=== PATIENT | female | born 1980 | race Caucasian/White ===

== ENCOUNTER 2020-02-23 13:18 | Emergency (ER) | payer MEDICARE, MEDICAID ==
[~2020-02-23] VITALS: Ht 147 cm; Wt 65.0 kg
[2020-02-23 13:35] VITALS: BP 120/60
[2020-02-23] MEDS ORDERED: CLIN300C11 PO (13:43)
--- NOTE | 2020-02-23 13:44 | ED EENT ---
History of Present Illness General Chief Complaint: Oral/Throat Problems Stated Complaint: SORE THROAT; COVID POS ON Exam Limitations: clinical condition, physical impairment History of Present Illness Date Seen by Provider: Feb 23, 2020 Time Seen by Provider: 13:35 Initial Comments 39-year-old mentally handicapped female presents with her caregiver stating that she's had swelling under her chin, just noted today and it seems to be tender. she was diagnosed with COVID-19 Allergies and Home Medications Allergies Coded Allergies: No Known Drug Allergies (Unverified , 02/23/20) Home Medications Clindamycin HCl 300 Mg Capsule, 300 MG PO TIDWM Prescribed by: JEOVANNY HANCOCK on 02/23/20 1343 Patient Home Medication List Home Medication List Reviewed: Yes Review of Systems Review of Systems Constitutional: no symptoms reported (unable to perform ROS due to Mental status) Past Gbpxgqh-Afvjat-Ihxtfs Hx Past Med/Social Hx: Reviewed Nursing Past Med/Soc Hx Physical Exam Vital Signs Vital Signs - First Documented 02/23/20 13:35 Temp 37.0 Pulse 116 Resp 20 B/P (MAP) 120/60 (80) Pulse Ox 95 O2 Delivery Room Air Height, Weight, BMI Height: '" Weight: lbs. oz. kg; BMI Method: General Appearance: WD/WN, no apparent distress Eyes: bilateral eye normal inspection, bilateral eye PERRL, bilateral eye EOMI Ears: bilateral ear auricle normal, bilateral ear canal normal Nose: normal inspection; No active bleeding, No discharge, No sinus tenderness Mouth/Throat: other (uncooperative for oral exam, edentulous, no externeal abnl appreciated) Neck: full range of motion, supple; No limited range of motion; other (midline edema submental area w mild tenderness) Cardiovascular: regular rate, rhythm, no edema, no JVD Respiratory: chest non-tender, lungs clear Neurologic/Psychiatric: alert Skin: normal color, warm/dry Progress/Results/Core Measures Results/Orders Vital Signs/I&O 02/23/20 13:35 Temp 37.0 Pulse 116 Resp 20 B/P (MAP) 120/60 (80) Pulse Ox 95 O2 Delivery Room Air Departure Impression Primary Impression: Lymphadenitis, acute Disposition: 01 HOME, SELF-CARE Condition: Stable Departure-Patient Inst. Decision time for Depature: 13:42 Patient Instructions: Lymphadenitis (DC) Add. Discharge Instructions: follow up with your PCP in 1 week for re-evaluation All discharge instructions reviewed with patient and/or family. Voiced understanding. Scripts Clindamycin HCl (Clindamycin HCl) 300 Mg Capsule 300 MG PO TIDWM, #21 CAP Prov: JEOVANNY HANCOCK DO 02/23/20 JEOVANNY HANCOCK DO Feb 23, 2020 13:44
== END 2020-02-23 13:50 | disposition home or self-care (01) ==
LOC: EDUNIT# 13:18 → ER FS 13:23
DX: L04.0 Acute lymphadenitis of face, head and neck (principal)
CPT/HCPCS: 99282

== ENCOUNTER 2021-07-23 13:38 | Day surgery (SDC) | payer MEDICARE, MEDICAID ==
[~2021-07-23 13:38] MED LIST: CLIN-144 PO
--- NOTE | 2021-07-23 14:01 | ED Cough/URI ---
General Chief Complaint: Cough/Cold/Flu Symptoms Stated Complaint: CHOKING Nursing Triage Note: Patient has been brought to ER by the [facility] staff with cc of choking at lunch. Since lunch pat has had couging fits and she has coughed out what they believe might be some string cheese that she had for lunch. They are concerned that she still has food stuck and came to ER for evaluation. Source: patient Exam Limitations: no limitations (OH PIRES MD) History of Present Illness Date Seen by Provider: Jul 23, 2021 Time Seen by Provider: 13:47 Initial Comments 40yoF with PMH of Alcohol Syndrome that is essentially nonverbal and developmentally delayed coming in due to concerns for choking. Around 11:30 AM she was eating and had some cheese. She began coughing some up and at one point was not making any noise and they were concerned her face turned blue. They performed the Heimlich for a couple attempts and she got a little bit up and started breathing, but continued to cough. They called 911 and were assessed by a field sales executive. Vitals were normal at that time and she did not appear to be choking so they left the scene without transporting the patient. She has continued to have coughing episodes where she is bringing up some food so they presented to the ER. Further elements of the history and physical are unable to be obtained from the patient given she is nonverbal. (OH PIRES MD) Allergies and Home Medications Allergies Coded Allergies: No Known Drug Allergies (Unverified , 02/23/20) Patient Home Medication List Home Medication List Reviewed: Yes (OH PIRES MD) Clindamycin HCl (Clindamycin HCl) 300 Mg Capsule, 300 MG PO TIDWM Prescribed by: JEOVANNY HANCOCK on 02/23/20 1343 Review of Systems Review of Systems Constitutional: No fever EENTM: no symptoms reported Respiratory: no symptoms reported Cardiovascular: no symptoms reported Gastrointestinal: no symptoms reported Genitourinary: no symptoms reported Musculoskeletal: no symptoms reported Skin: no symptoms reported Psychiatric/Neurological: No Symptoms Reported Hematologic/Lymphatic: No Symptoms Reported Immunological/Allergic: no symptoms reported (OH PIRES MD) All Other Systems Reviewed Negative Unless Noted: Yes (OH PIRES MD) Past Mbvzgsx-Zlcsft-Xqodmx Hx Patient Social History Tobacco Use?: No Use of E-Cig and/or Vaping dev: No Substance use?: No Alcohol Use?: No (OH PIRES MD) Seasonal Allergies Seasonal Allergies: No (OH PIRES MD) Past Medical History Surgeries: No Respiratory: No Cardiac: No Neurological: Yes (intellectual disabilities) Genitourinary: No Gastrointestinal: No Musculoskeletal: No Endocrine: No HEENT: No Cancer: No Psychosocial: No Integumentary: No (OH PIRES MD) Physical Exam Vital Signs - First Documented 07/23/21 13:51 Temp 36.2 Pulse 86 Resp 18 B/P (MAP) 120/67 (84) Pulse Ox 100 O2 Delivery Room Air (LINK BLANCAS APRN) Capillary Refill : (OH PIRES MD) Height: '" Weight: lbs. oz. kg; 30.00 BMI Method: General Appearance: WD/WN, no apparent distress Eyes: Bilateral Eye Normal Inspection HEENT: PERRL/EOMI, normal ENT inspection, pharynx normal, other (clear mouth without food in it) Neck: non-tender, full range of motion, supple, normal inspection Respiratory: chest non-tender, lungs clear, normal breath sounds, no respiratory distress, no accessory muscle use Cardiovascular: regular rate, rhythm, no edema, no murmur Gastrointestinal: normal bowel sounds, non tender, soft; No distended, No guarding, No rebound Extremities: normal range of motion, non-tender, normal inspection, no pedal edema, no calf tenderness, normal capillary refill Neurologic/Psychiatric: no motor/sensory deficits, alert, normal mood/affect Skin: normal color, warm/dry Lymphatic: no adenopathy (OH PIRES MD) Progress/Results/Core Measures Suspected Sepsis SIRS Temperature: Pulse: 86 Respiratory Rate: 18 Blood Pressure 120 /67 Mean: 84 (OH PIRES MD) Results/Orders My Orders Orders - LINK BLANCAS APRN Chest 1 View, Ap/Pa Only (07/23/21 16:00) Ed Iv/Invasive Line Start (07/23/21 16:00) (LINK BLANCAS APRN) Vital Signs/I&O 07/23/21 07/23/21 07/23/2122 13:51 14:22 15:14 15:42 Temp 36.2 36.6 Pulse 86 84 84 86 Resp 18 18 16 20 B/P (MAP) 120/67 (84) 130/75 120/67 (84) 132/88 Pulse Ox 100 100 100 O2 Delivery Room Air Nasal Cannula O2 Flow Rate 2.00 07/23/21 15:42 Temp 36.6 Pulse 86 Resp 20 B/P (MAP) 132/88 (103) Pulse Ox 100 O2 Delivery Nasal Cannula O2 Flow Rate 2.00 (LINK BLANCAS APRN) Vital Signs/I&O Capillary Refill : (OH PIRES MD) Blood Pressure Mean: 84 Progress Note : Progress Note 40-year-old female coming in after an aspiration event. ABCs were intact and vitals were stable on presentation. Physical exam with clear lung sounds bilaterally. The patient is actively coughing and she is spitting all of her secretions into a towel at the bedside. Is difficult to assess what she is feeling given she is nonverbal. We attempted to get her to drink water, but she immediately spit it out. I am concerned there could be a food bolus impaction in her esophagus versus discomfort from food in her airway. Chest x-ray with some elevation of the left hemidiaphragm but otherwise no acute findings. I discussed with the patient's caregivers if we could try to do a CT to get more information. The patient is unwilling to lay down flat for this, and is unwilling to hold still for the procedure to get good pictures. I think the risk of sedating her for CT outweigh the benefits. I called and discussed the case with Dr. Silverio, and he is agreeable to doing an EGD as well as any other indicated procedure after he assesses her. I contacted the patient's mother (Aminata Buchanan at [phone]) who is her legal guardian and consented for this procedure with 2 people listening onto the phone conversation. The patient will be transferred from ER to ER to [place]. I discussed the case with Dr. Arias who is agreeable to excepting this patient. (OH PIRES MD) Diagnostic Imaging Diagonstic Imaging: Xray (chest) Comments [facility] [place], [place] NAME: SUSANA BUCHANAN [facility] REC#: [id number] PT STATUS: REG ER : 1980 PHYSICIAN: OH PIRES MD ADMIT DATE: 07/23/21/ER FS Draft Date of Exam:07/23/21 CHEST 1 VIEW AP/PA ONLY INDICATION: Aspiration. COMPARISON: None. FINDINGS: Single frontal radiographic view of the chest was obtained and demonstrates moderate asymmetric elevation of the left hemidiaphragm. There is asymmetric left basilar patchy atelectasis. Otherwise, lungs are clear. There is no large effusion nor pneumothorax. Cardiac silhouette and pulmonary vasculature are within normal limits. Osseous structures show dextroscoliotic deformity of the lower thoracic spine. No gross acute osseous abnormalities are seen. IMPRESSION: 1. Asymmetric elevation of the left hemidiaphragm with left basilar patchy atelectasis. 2. Otherwise, no acute cardiopulmonary process. Dictated on workstation # [id number] Dict: 07/23/21 1409 Trans: 07/23/21 1417 [id number] Interpreted by: VINAY GONZALES MD Electronically signed by: (OH PIRES MD) Departure Communication (Admissions) 1545 has arrived to ER by [facility]. They report that her oxygen was fine until they reached about [place]. At that point she started having some excessive oral secretions and had difficulty clearing them. When she would clear her throat and cough she would get a large amount of secretion up and her oxygen saturation would improve. On arrival here we did some deeper suctioning though she was not appreciative of this. We did aspirate a lot of saliva from the oropharynx. Sats are fine. (LINK BLANCAS APRN) Impression Primary Impression: Aspiration of food Qualified Codes: T17.928A - Food in respiratory tract, part unspecified causing other injury, initial encounter Disposition: ADMITTED INPATIENT Condition: Stable Transfer Time Spoke to Accepting Phy: 14:35 Transfer Progress Notes Discussed the case with the general surgeon in [place] as well as the emergency department physician. The patient will be an ER to ER transfer, will then be taken to the endoscopy lab and likely discharged from there. Transfer Time: 14:45 Transfer Facility: [facility] Method of Transfer: EMS (OH PIRES MD) Departure-Patient Inst. Referrals: FBAY MILLER APRN (PCP) Primary Care Physician [facility]/ (Family) Primary Care Physician OH PIRES MD Jul 23, 2021 14:01 LINK BLANCAS APRN Jul 23, 2021 15:46
--- NOTE | 2021-07-23 14:17 | Diagnostic Imaging Report ---
INDICATION: Aspiration. COMPARISON: None. FINDINGS: Single frontal radiographic view of the chest was obtained and demonstrates moderate asymmetric elevation of the left hemidiaphragm. There is asymmetric left basilar patchy atelectasis. Otherwise, lungs are clear. There is no large effusion nor pneumothorax. Cardiac silhouette and pulmonary vasculature are within normal limits. Osseous structures show dextroscoliotic deformity of the lower thoracic spine. No gross acute osseous abnormalities are seen. IMPRESSION: 1. Asymmetric elevation of the left hemidiaphragm with left basilar patchy atelectasis. 2. Otherwise, no acute cardiopulmonary process. Dictated by: Dictated on workstation # [id number]
--- NOTE | 2021-07-23 16:21 | History & Physical-Surgical ---
THALIA JO Mariaelena 07/23/21 1621: History of Present Illness History of Present Illness Reason for visit/HPI CC: Choking HPI: is a 40 year old female with a past medical history of alcohol syndrome who is nonverbal. She presented to the [facility] ED via a transfer from [place]. History obtained from chart review and ED staff. When she was being transferred from [place] to [place] she developed an episode of hypoxia with saturations in the 80s. Suctioning was performed and around 50 mL of saliva with sanguineous material was removed. Remainder of HPI as follows from chart review: 40yoF with PMH of Alcohol Syndrome that is essentially nonverbal and developmentally delayed coming in due to concerns for choking. Around 11:30 AM she was eating and had some cheese. She began coughing some up and at one point was not making any noise and they were concerned her face turned blue. They performed the Heimlich for a couple attempts and she got a little bit up and started breathing, but continued to cough. They called 911 and were assessed by a bureau director. Vitals were normal at that time and she did not appear to be choking so they left the scene without transporting the patient. She has continued to have coughing episodes where she is bringing up some food so they presented to the ER. Date of Admission 07/23/2021 Date Seen by a Provider: Jul 23, 2021 Time Seen by a Provider: 16:02 I consulted on this patient on 07/23/21 16:15 Attending Physician Joey Fernandez DO Admitting Physician Antonia Mejia Aprn Consult Allergies and Home Medications Allergies Coded Allergies: No Known Drug Allergies (Unverified , 02/23/20) Patient Home Medication List Clindamycin HCl (Clindamycin HCl) 300 Mg Capsule, 300 MG PO TIDWM Prescribed by: JEOVANNY HANCOCK on 02/23/20 1343 Past Apinaoi-Btyprp-Wdghcy Hx Patient Social History Tobacco Use?: No Use of E-Cig and/or Vaping dev: No Substance use?: No Alcohol Use?: No Seasonal Allergies Seasonal Allergies: No Current Status Primary Language: Armenian Preferred Spoken Language: Armenian Past Medical History Developmental Disorder ( alcohol syndrome) Review of Systems ROS-Unable to Obtain: Unable to obtain d/t patient nonverbal status Physical Exam Vital Signs Vital Signs - First Documented 07/23/21 13:51 Temp 36.2 Pulse 86 Resp 18 B/P (MAP) 120/67 (84) Pulse Ox 100 O2 Delivery Room Air Capillary Refill : Less Than 3 Seconds Height, Weight, BMI Height: '" Weight: lbs. oz. kg; 30.00 BMI Method: General Appearance: No Apparent Distress, WD/WN HEENT: PERRL/EOMI, Moist Mucous Membranes Neck: Normal Inspection, Supple Respiratory: No Accessory Muscle Use, No Respiratory Distress, Decreased Breath Sounds, Wheezing Cardiovascular: Regular Rate, Rhythm, Normal Peripheral Pulses Gastrointestinal: Non Tender, Soft Neurologic/Psychiatric: Alert; No Oriented x3 (Patient nonverbal) Skin: Normal Color, Warm/Dry Data Review Radiology Date of Exam:07/23/21 CHEST 1 VIEW AP/PA ONLY INDICATION: Aspiration. COMPARISON: None. FINDINGS: Single frontal radiographic view of the chest was obtained and demonstrates moderate asymmetric elevation of the left hemidiaphragm. There is asymmetric left basilar patchy atelectasis. Otherwise, lungs are clear. There is no large effusion nor pneumothorax. Cardiac silhouette and pulmonary vasculature are within normal limits. Osseous structures show dextroscoliotic deformity of the lower thoracic spine. No gross acute osseous abnormalities are seen. IMPRESSION: 1. Asymmetric elevation of the left hemidiaphragm with left basilar patchy atelectasis. 2. Otherwise, no acute cardiopulmonary process. Dictated on workstation # [id number] Assessment/Plan Assessment/Plan Admission Diagonsis Possible food bolus Choking alcohol syndrome Nonverbal Assessment/Plan Assessment: Possible food bolus Choking alcohol syndrome Nonverbal Plan: Suction mouth and oropharynx as needed Consent for EGD obtained Plan for EGD JOEY FERNANDEZ DO 07/23/21 1634: History of Present Illness History of Present Illness Reason for visit/HPI CC: aspiration of food 40 year old female with alcohol syndrom nonverbal lives in home. Had choking and truned blue. Had Heimlich maneuver performed and had some food expressed. Started breathing better. Conitnued to cough and bring up foot. She can not keep secretions down and is spitting. Not able to drink anything. Allergies and Home Medications Allergies Coded Allergies: No Known Drug Allergies (Unverified , 02/23/20) Patient Home Medication List Home Medication List Reviewed: Yes Clindamycin HCl (Clindamycin HCl) 300 Mg Capsule, 300 MG PO TIDWM Prescribed by: JEOVANNY HANCOCK on 02/23/20 1343 Review of Systems ROS-Unable to Obtain: unable to obtain nonverbal Constitutional: other (nonverbal) Physical Exam General Appearance: No Apparent Distress ( spitting out secretions), WD/WN HEENT: PERRL/EOMI Neck: Normal Inspection, Supple Respiratory: Chest Non Tender, No Accessory Muscle Use, No Respiratory Distress, Decreased Breath Sounds Cardiovascular: Regular Rate, Rhythm, No JVD Gastrointestinal: Non Tender, Soft Rectal: Deferred Back: No CVA Tenderness Extremity: Normal Inspection, Normal Range of Motion Neurologic/Psychiatric: Alert; No Oriented x3 (Patient nonverbal) Skin: Normal Color, Warm/Dry Lymphatic: No Adenopathy Assessment/Plan Assessment/Plan Admission Diagonsis Esophageal obstruction Choking alcohol syndrome Nonverbal Admission Status: Other (Same Day Surgery) Assessment/Plan Esophageal obstruction Choking alcohol syndrome Nonverbal Suction mouth and oropharynx as needed Consent for EGD obtained all other indicated procedures and may need to do bronch which mother understands. Supervisory-Addendum Brief Verification & Attestation Participated in pt care: history, MDM, physical Personally performed: exam, history, MDM, supervision of care Care discussed with: Medical Student Procedures: n/a Results interpretation: Verified all documentation Verification and Attestation of Medical Student E/M Service A medical student performed and documented this service in my presence. I reviewed and verified all information documented by the medical student and made modifications to such information, when appropriate. I personally performed the physical exam and medical decision making. Joey Fernandez, Jul 23, 2021,16:35 THALIA JO Jul 23, 2021 16:21 JOEY FERNANDEZ DO Jul 23, 2021 16:34
--- NOTE | 2021-07-23 16:30 | Diagnostic Imaging Report ---
INDICATION: Cough. Aspiration. Hypoxia. COMPARISON: Earlier same day FINDINGS: Single frontal radiographic view of the chest was obtained and again demonstrates asymmetric elevation of the left hemidiaphragm. There is patchy left basilar airspace opacity, which is favored to represent atelectasis. Right lung is clear. No large effusion or pneumothorax is seen on either side. Cardiac silhouette and pulmonary vasculature are within normal limits. Osseous structures show no gross acute abnormalities. IMPRESSION: 1. Persistent asymmetric elevation of th left hemidiaphragm with probable patchy left basilar atelectasis. 2. No acute adverse interval change when compared to earlier same day. Dictated by: Dictated on workstation # [id number]
[2021-07-23] MEDS ORDERED: LIDOCAINE PF 2% 5 ML (XYLOCAINE) VIAL ONE (16:48)
[2021-07-23] MEDS ORDERED: SUCCINYLCHOLINE INJ 100 MG/5 ML SYR/VIAL ONE (16:48)
[2021-07-23] MEDS ORDERED: proPOfol 200 MG/20 ML (DIPRIVAN) VIAL IV ONE (16:48)
[2021-07-23] MEDS ORDERED: SEVOFLURANE (ULTANE) 15 ML INHAL SOLN ONE (17:29)
[2021-07-23 17:34] VITALS: BP 130/86
[2021-07-23] MEDS ORDERED: ONDANSETRON 4 MG/2 ML (SDV) Z0FRAN IVP PRN (17:45)
--- NOTE | 2021-07-23 17:46 | Anesthesia-General Post-Op ---
General Patient Condition Mental Status/LOC: Same as Preop Cardiovascular: Satisfactory Nausea/Vomiting: Absent Respiratory: Satisfactory Pain: Controlled Complications: Absent Post Op Complications Complications None Follow Up Care/Instructions Patient Instructions None needed. Anesthesia/Patient Condition Patient Condition Patient is doing well, no complaints, stable vital signs, no apparent adverse anesthesia problems. No complications reported per nursing. CARLTON NIELSEN CRNA Jul 23, 2021 17:46
[2021-07-23 18:15] VITALS: BP 157/99
[2021-07-23 18:45] VITALS: BP 153/96
[2021-07-23 18:46] VITALS: BP 153/96
--- NOTE | 2021-07-24 03:57 | OPERATIVE REPORT ---
DATE OF SERVICE: 07/23/2021 PREOPERATIVE DIAGNOSIS: Esophageal obstruction. POSTOPERATIVE DIAGNOSES: Esophageal obstruction. PROCEDURE: EGD with removal of food bolus causing esophageal obstruction. SURGEON: Joey Silverio DO ANESTHESIA: General. ESTIMATED BLOOD LOSS: None. COMPLICATIONS: None. INDICATIONS: The patient is a 40-year-old female who is nonverbal with alcohol syndrome. She was thought to have aspirated or choked, which she had had a Heimlich maneuver for. The patient was unable to keep secretions down and felt to possibly have an esophageal obstruction. She was transferred to [facility] for EGD. Consent was obtained from her mother. DESCRIPTION OF PROCEDURE: The patient was taken to the operating suite. She was intubated under general endotracheal intubation. Timeout was performed. Scope was inserted in mouth into the proximal esophagus; an obstructing bolus of food was present. This was the intact grape. A Miller Net was attempted to get around the grape but was unsuccessful. At this point, the snare was attempted to get around it, but unsuccessful. A biopsy forceps were used and still was difficult to get removed. At this time, biopsy forceps were continued to use to take multiple bites and continued to break down the food bolus, which was a grape. This was continued until the grape was able to be pushed distally into the stomach. Once in the stomach, scope was inserted through the stomach into the pylorus and into the duodenum without difficulty. There were no polyps, masses or ulcerations within the duodenum. Scope was slowly retracted back to stomach where it was further insufflated. Food present within the stomach. No gross pathology noted. Scope was retroflexed noting no other pathology. Scope was returned to its normal position, slowly withdrawn to distal esophagus. No evidence of any significant stricture or skin changes or erythematous changes where grape had been lodged. Scope was then slowly retracted back until completely removed. The patient tolerated procedure well without any complications. She was taken to recovery room in stable condition. RECOMMENDATIONS: The patient's food obstruction was relieved. No stricture. If she continues to have any problems, we will consider repeating endoscopy. Otherwise, she can just follow up on an as needed basis. Job ID: [id number] DocumentID: [id number] Dictated Date: 07/23/2021 19:00:58 Veterinary Radiologist Date: 07/23/2021 20:48:51 Dictated By: JOEY SILVERIO DO
== END 2021-07-23 18:45 ==
LOC: EDUNIT# 13:38 → ER FS 13:39 → SDC 16:03
PROVIDERS: ATTEND Surgery
DX: T18.128A Food in esophagus causing other injury, initial encounter (principal); K22.2 Esophageal obstruction; Q86.0 Fetal alcohol syndrome (dysmorphic); R47.9 Unspecified speech disturbances
CPT/HCPCS: 71045